=== PATIENT | female | born 1965 | race Caucasian/White ===

== ENCOUNTER 2023-05-11 02:49 | Outpatient (CLI) | payer BC, SELFPAY ==
--- NOTE | 2023-05-11 08:15 | DI.US_ITS ---
Exam(s) US NEEDLE LOCAL OTHER WO RAD EXAM: US NEEDLE LOCAL OTHER WO RAD CLINICAL HISTORY: thyroid nodule, tr 5 lesion isthmus, E04.1. COMPARISON: US US THYROID/NECK/HEAD from 03/31/2023 TECHNIQUE: Ultrasound was provided for Dr. Fraga for guidance with performing FNA of thyroid nodule s. FINDINGS: Please see procedure note for details. IMPRESSION: Successful Ultrasound-guided thyroid FNA. DATA REPOSITORY:
--- NOTE | 2023-05-11 11:45 | PAPNONF_PTH ---
PATIENT: Jessica Simeon LOC: [facility] U#:[id number] AGE/SX: 57/F ROOM: RE05/11/[address]: Jennifer Ortega : 1965 BED: DIS: 05/11/2023 SPEC #: [id number] RECD: 05/11/23 13:13 STATUS: ALPHONSO REAlex #: [id number] NAOMIE: 05/11/23 11:[address]: Jennifer Ortega DEPT: [facility] Cytology RECD BY: Nola Carter ENTERED: 05/11/23 13:15 SP TYPE: ADDIS FLORES DR: Dinorah Castillo Tissues: 1 - BODY FLUID CYTO-FINE NEEDLE ASPIRATE-[facility] Procedures: BODY FLUID CYTO-FINE NEEDLE ASPIRATE-[facility] Comments: [id number] (PATH FNA CONSULT) (REFRIGERATED)
--- NOTE | 2023-05-11 11:53 | OPPNE_ITS ---
Date of service: 05/11/23 Time of Service: 11:53 Procedure Note Date of procedure: 05/11/23 Procedure: Ultrasound-guided FNA, isthmus thyroid nodule, pathology present Procedure Diagnosis: Isthmus thyroid nodule 1 cm diameter, TR 5 by previous ultrasound Procedure Indications: The patient has a newly diagnosed Mercy's thyroiditis, and on previous ultrasound was found to have a 1 cm nodule within the isthmus that was concerning for TR 5 rating. As result she is here today for FNA. Risks and benefits as well as the procedure were discussed at length. Consent was filled out and signed. The patient wished to proceed. Procedure Description: The patient was positioned in a supine position with her neck slightly extended. Ultrasound was used to examine the thyroid revealing diffuse inflammation within the thyroid consistent with Mercy's thyroiditis. The area of concern on previous ultrasound was visualized, and while it appears to be just an area involved with Mercy's thyroiditis to my eye, after discussion with the patient, the decision was made to proceed with FNA of the area. The patient was prepped and draped in appropriate fashion and 1% lidocaine with 1/100,000 epinephrine was injected into the skin and subcutaneous tissues over the nodule. Using ultrasound to guide the FNA, FNA was performed of the right thyroid nod ule. Several passes were made into the thyroid nodule. After ensuring adequate cellularity through pathology, 2 additional passes were made for potential Afirma testing. The patient tolerated the procedure well. Bleeding was minimal and self-limited. A sterile dressing was applied. The patient was then allowed to sit up and to stand. Her vital signs remained stable and she was able to ambulate afterwards without difficulty. She will use ibuprofen or Tylenol for any discomfort. A sterile dressing has been applied. She will call with any signs of infection or any concerns. She will also call if she does not hear from me within 1 week with regard to pathology results
== END 2023-05-11 03:09 ==
LOC: DI 02:52
PROVIDERS: PCP Nurse Practitioner Women's Health; Visit Provider Registered Nurse Maternal Newborn
DX: E04.1 Nontoxic single thyroid nodule (principal)
CPT/HCPCS: 76942; 88104